=== PATIENT | male | born 2000 | race Two or more races ===

== ENCOUNTER 2020-08-07 03:43 | Emergency (ER) | payer OTHER ==
[~2020-08-07] VITALS: Ht 180.3 cm; Wt 127.0 kg
[2020-08-07] MEDS ORDERED: TDAP [DIPH/PERTUSSIS/TET] 0.5 ML VIAL IM ONE ×2 (04:00→04:13)
--- NOTE | 2020-08-07 04:04 | NUR ---
X RAY AT BED SIDE
[2020-08-07] MEDS ORDERED: AMOX/CLAVULANATE 875 MG TABLET ONE (04:12)
[2020-08-07 04:16] VITALS: BP 131/78
[2020-08-07] MEDS ORDERED: IBUPROFEN 600 MG TABLET ONE (04:27)
[2020-08-07] MEDS ORDERED: AMOX/CLAVULANATE 875 MG TABLET PO ONE (04:30)
[2020-08-07] MEDS ORDERED: IBUPROFEN 600 MG TABLET PO ONE (04:30)
--- NOTE | 2020-08-07 04:35 | NUR ---
Patient discharged to home in stable condition. Written and verbal after care instructions given. Patient verbalizes understanding of instruction.Pt ambulatory with a steady gait
== END 2020-08-07 04:35 | disposition home or self-care (01) ==
LOC: ER 03:46
DX: S61.412A Laceration without foreign body of left hand, initial encounter (principal); W26.0XXA Contact with knife, initial encounter; Y93.89 Activity, other specified; Y92.89 Other specified places as the place of occurrence of the external cause; Y99.8 Other external cause status
CPT/HCPCS: 73130-TC; 90715